=== PATIENT | male | born 1955 | race Caucasian/White ===

== ENCOUNTER 2020-01-19 08:23 | Outpatient (CLI) | payer MEDICARE ==
[2020-01-19] MEDS ORDERED: Magnevist 469MG/ML 20 ML VIAL ONE (10:21)
--- NOTE | 2020-01-19 11:12 | MRI ---
EXAM: MRI of the pelvis/prostate without and with contrast HISTORY: Prostate cancer COMPARISON: CT abdomen/pelvis 10/24/2013 TECHNIQUE: Multiplanar multisequence MR images were obtained of the pelvis without and with IV contra st. Evaluation of this exam was performed with a [employer] workstation. FINDINGS: Central gland: Moderate hypertrophy of the central gland consistent with BPH. Prostate volume is saira mated at 54 mL. A minimal amount of high T1 signal is seen in the right central gland which likely represents blood from recent biopsy. No suspicious low T2 signal lesion is seen. Peripheral zone: No restricted diffusion is seen. No low signal on ADC map. Evaluation of the central most posterior aspect of the peripheral zone is slightly limited secondary to artifact on the diffusion sequence and ADC map. Seminal vesicles: Intact without abnormality Neurovascular bundles: Intact Pelvic lymph nodes: No pelvic adenopathy Other visualized intrapelvic structures: Scattered diverticula in the colon Osseous structures: No marrow signal abnormality IMPRESSION: 1. PI-RADS Category 2-low likelihood that a clinically significant cancer is present. 2. Diverticulosis
== END 2020-01-19 08:24 | disposition home or self-care (01) ==
LOC: TBSIIMAG 08:23
PROVIDERS: ATTEND Urology
DX: R97.20 Elevated prostate specific antigen [PSA] (principal); K57.30 Diverticulosis of large intestine without perforation or abscess without bleeding
CPT/HCPCS: 72197; 82565; A9579

== ENCOUNTER 2020-01-23 06:20 | Outpatient (CLI) | payer MEDICARE ==
[2020-01-23 10:20] LABS: Hemoglobin 16.3 g/dL (14.0-18.0); Mean Corpuscular HGB CONC 33.5 G/DL (32.0-36.0); Mean Corpuscular Hemoglobin 29.9 PG (27.0-33.0); Mean Corpuscular Volume 89.2 fl (80.0-100.0); Mean Platelet Volume 11.2 fl (7.4-10.4); Platelet Count 273 10x3/uL (130-400); RBC Distribution Width 12.6 % (11.5-14.5); Red Blood Cell (RBC) Count 5.45 10x6/uL (4.40-5.80); White Blood Cell (WBC) Count 6.5 10x3/uL (4.5-11.0)
[2020-01-23 10:34] LABS: PTT 28.8 sec (22.0-33.0); Prothrombin Time 10.7 sec (9.5-12.1)
[2020-01-23 10:36] LABS: Anion Gap 17 mmol/L (10-20); BUN (Urea Nitrogen) 14 mg/dL (8.4-25.7); Calc. Creatinine Clearance 0 mL/min (70-130); Calcium 9.4 mg/dL (7.8-10.44); Carbon Dioxide 24 mmol/L (23-31); Chloride 101 mmol/L (98-107); Glucose 83 mg/dL (80-115); Potassium 4.5 mmol/L (3.5-5.1); Sodium 137 mmol/L (136-145)
--- NOTE | 2020-01-23 16:11 | EKG ---
Test Reason : Blood Pressure : / mmHG Vent. Rate : 062 BPM Atrial Rate : 062 BPM P-R Int : 162 ms QRS Dur : 084 ms QT Int : 428 ms P-R-T Axes : 073 080 070 degrees QTc Int : 434 ms Normal sinus rhythm Normal ECG No previous ECGs available Confirmed by DR. Silvestre PANDYA ([id number]) on 01/23/2020 4:11:06 PM Referred By: VERONICA Confirmed By:DR. Silvestre PANDYA
[2020-01-23 17:12] LABS: SARS-CoV-2 MS2 Positive; SARS-CoV-2 N Gene Negative; SARS-CoV-2 S Gene Negative; SARS-CoV-2 by NAA Not Detected (NotDetected); SARS-CoV-2 orf1ab Negative
== END 2020-01-23 06:21 | disposition home or self-care (01) ==
LOC: LABBT 06:20
PROVIDERS: ATTEND Urology
DX: Z01.818 Encounter for other preprocedural examination (principal); Z20.828 Contact with and (suspected) exposure to other viral communicable diseases; N40.0 Benign prostatic hyperplasia without lower urinary tract symptoms
CPT/HCPCS: 80048; 85027; 85610; 85730; 93005; U0003; 87635; 93010

== ENCOUNTER 2020-01-28 07:46 | Observation (INO) | payer MEDICARE ==
[2020-01-28] MEDS ORDERED: PROPOFOL 200 MG/20 ML VIAL ONE (09:04)
[2020-01-28] MEDS ORDERED: Lidocaine 1% PF 5 ML VIAL ONE (09:04)
[2020-01-28] MEDS ORDERED: Sodium Chloride 0.9% 100 ML ONE (09:27)
[2020-01-28] MEDS ORDERED: cefTRIAXone\\ROCEPHIN 2 GM VIAL ONE (09:27)
[2020-01-28] MEDS ORDERED: Fentanyl 100 MCG/2 ML VIAL ONE (10:19)
[2020-01-28] MEDS ORDERED: Phenazopyridine HCl 100 MG TAB ONE ×2 (11:42→20:17)
[2020-01-28] MEDS ORDERED: HYDROcodone/Acetaminophen 5/325 mg Tablet ONE ×2 (13:47→18:45)
[2020-01-28] MEDS ORDERED: Hyoscyamine Sulfate SL 0.125 mg Tablet ONE ×4 (14:44→20:17)
[2020-01-28] MEDS ORDERED: Morphine 2 MG/ML VIAL SLOW IVP PRN (22:41)
[2020-01-28] MEDS ORDERED: Zolpidem Tartrate 5 MG TAB PO PRN (22:41)
[2020-01-28] MEDS ORDERED: Sodium Chloride 0.9% 1,000 ML IV SCH (22:45)
[2020-01-28] MEDS ORDERED: Morphine 4 MG/ML VIAL SLOW IVP PRN (22:48)
[2020-01-28] MEDS ORDERED: HYDROcodone/Acetaminophen 5/325 mg Tablet PO PRN ×2 (22:49)
[2020-01-28] MEDS ORDERED: Acetaminophen 500 MG TAB PO PRN (22:49)
[2020-01-28] MEDS ORDERED: diphenhydrAMINE 50 MG/ML VIAL IVP PRN (22:51)
[2020-01-28] MEDS ORDERED: diphenhydrAMINE 25 MG CAP PO PRN (22:52)
[2020-01-28] MEDS ORDERED: Ondansetron PF 4 MG/2 ML Vial IVP PRN (22:54)
[2020-01-28] MEDS ORDERED: Phenazopyridine HCl 100 MG TAB PO PRN (22:54)
[2020-01-28] MEDS ORDERED: hydrALAZINE 20 MG/ML VIAL SLOW IVP PRN (22:56)
[2020-01-28] MEDS ORDERED: Mag-Al 1200 mg/1200 mg/30 ML UDCUP PO PRN (22:56)
[2020-01-29] MEDS ORDERED: HYDROcodone/Acetaminophen 5/325 mg Tablet ONE (01:55)
[2020-01-29 03:19] VITALS: BMI 29.9
[2020-01-29] MEDS ORDERED: Hyoscyamine Sulfate SL 0.125 mg Tablet SL SCH (06:00)
--- NOTE | 2020-01-29 07:32 | PRG ---
DATE OF SERVICE: 01/29/2020 SUBJECTIVE: The patient without complaints, had a good night restful sleep. OBJECTIVE: VITAL SIGNS: Stable. Urine output, CBI was held this morning at 5:00 a.m., with clear yellow urine. GENERAL: The patient is in no acute distress. HEART: Regular rate. LUNGS: Clear. ABDOMEN: Soft. : Voiding trial initiated. Bladder filled to its capacity, visualized to see good flow. EXTREMITIES: No cyanosis, clubbing, or edema. IMPRESSION AND PLAN: 1. Mr. Santos is a pleasant 65-year-old male with history of elevated PSA, biopsy negative for malignancy. 2. Severe benign prostatic hypertrophy symptoms, unable to tolerate medications due to side effects. 3. Postop day #1, status post UroLift. Surgery was uneventful, hematuria resolved this morning. Will initiate voiding trial. Anticipate patient to be discharged this morning Job ID: [id number] [facility]
--- NOTE | 2020-01-29 07:57 | OP ---
DATE OF PROCEDURE: 01/28/2020 PRIMARY CARE PHYSICIAN: Dr. Jones. PREOPERATIVE DIAGNOSES: A 65-year-old male with: 1. History of benign prostatic hyperplasia. 2. History of elevated PSA, biopsy negative for malignancy. 3. Intolerability to benign prostatic hyperplasia medications with IPSS score of 21. POSTOPERATIVE DIAGNOSES: A 65-year-old male with: 1. History of benign prostatic hyperplasia. 2. History of elevated PSA, biopsy negative for malignancy. 3. Intolerability to benign prostatic hyperplasia medications with IPSS score of 21. PROCEDURES PERFORMED: 1. Cystoscopy. 2. UroLift implantx9(1 pull-through, 1 implant required removal due to proximity to bladder neck) ANESTHESIA: TIVA. COMPLICATIONS: None apparent. DISPOSITION: To recovery room in stable condition. IMPLANTS: Right UroLift implant x9. INDICATIONS FOR PROCEDURE AND HISTORY: Mr. Santos is a pleasant 65-year-old male who was referred to [facility] for elevated PSA, history of epididymo-orchitis in the past. His prostate biopsy is negative for malignancy, volume 60 g. Cystoscopy demonstrated severe bilobar hyperplasia with no obvious median lobe of concern. He presents today for UroLift, which he prefers due to minimally invasive approach. He has been fully informed regarding possible need to escalate to more definitive treatment, such as TURP. Risks and complications of the procedure including, but not limited to, bleeding; pain; infection; urosepsis; injury to adjacent organs, such as neurovascular structures, ureteral orifices; chronic pain, possible incrustation, requiring removal of implants were discussed with him in detail. All questions answered to his satisfaction and he desired to proceed. DESCRIPTION OF PROCEDURE: After an informed consent was signed, the patient was taken to the operating room and placed in a dorsal lithotomy position with the genital area prepped and draped in the usual surgical sterile fashion. A 21- Salvadorean cystoscope was utilized for cystoscopy, which again demonstrated severe bilobar hyperplasia of the prostate. The bladder was entered, demonstrating trabeculation, consistent with chronic outlet obstruction. UOs are about 2 to 3 mm proximal to the bladder neck. At this time, we transitioned to the UroLift device with a visual obturator. We placed a total of 4 implants on the right, a total of 3 on the left, in which in situ he has total of 7 implants. There was one attempt in the left lateral lobe, which resulted in a pull-through. The initial implant that was placed in the left proximal prostatic urethra appeared to be encroaching the bladder neck, therefore I did transition to a DVIU scope and using endoscopic graspers. The urethra tab was removed, and as such, he has a total of 7 implants, and 9 UroLift implants were utilized, resulting in 1 pull-through and 1 removal. At the end of the procedure, we were able to create an anterior channel with resolution of obstructive component. He tolerated the procedure well and transported to the recovery room in stable condition. An 18-Salvadorean 30 mL Solorio catheter was placed. I will monitor him for degree of hematuria and pending reassessment, will be discharged with Solorio versus voiding trial. Postoperative medications sent to the patient's pharmacy. Job ID: [id number] [facility]
[2020-01-29] MEDS ORDERED: Docusate 100 MG CAP PO SCH (09:00)
[2020-01-29] MEDS ORDERED: cefTRIAXone\\ROCEPHIN 1 GM in Sodium Chloride 0.9% 100 ML IVPB SCH (09:00)
[2020-01-29] MEDS ORDERED: Famotidine/PF 20 mg/2ml Vial SLOW IVP SCH (09:00)
[2020-01-29 11:49] VITALS: BP 154/89; TEMP 97.8
--- NOTE | 2020-01-29 12:53 | DIS ---
DATE OF ADMISSION: 01/28/2020 DATE OF DISCHARGE: 01/29/2020 ADMITTING DIAGNOSIS: Benign prostatic hyperplasia. DISPOSITION: To home to self-care. FOLLOWUP: followup appointment on January 29 at 8:00 a.m. for peak-flow PVR. 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 As he has significant BPH symptoms, he desired minimally invasive approach, i.e., UroLift. His prostate volume is enlarged, he has been fully informed regarding possible escalation for more definitive surgery. He underwent UroLift, he was monitored with indwelling Solorio catheter. He had degree of hematuria that required CBI overnight. Although, CBI was a very low rate, as I had concern regarding possible clot retention, I informed him to be prudent to observe him overnight. He had minimal hematuria overnight, CBI at a very low rate. This was held this morning with clear yellow urine. Catheter was removed and he has spontaneously voided multiple times, with urine output clearing. He will follow up with me tomorrow for peak-flow PVR. Job ID: [id number] [facility]
== END 2020-01-29 15:00 | disposition home or self-care (01) ==
LOC: SDC 07:46 → SURG B 16:11
PROVIDERS: ADMIT Urology; ATTEND Urology
PROC: 0T7D8DZ Dilation of Urethra with Intraluminal Device, Via Natural or Artificial Opening Endoscopic (ICD-10-PCS; principal; 2020-01-28)
DX: N40.1 Benign prostatic hyperplasia with lower urinary tract symptoms (principal); R35.0 Frequency of micturition; R35.1 Nocturia; E78.5 Hyperlipidemia, unspecified; K21.9 Gastro-esophageal reflux disease without esophagitis; Z79.899 Other long term (current) drug therapy; Z87.438 Personal history of other diseases of male genital organs; Z88.1 Allergy status to other antibiotic agents; Z88.8 Allergy status to other drugs, medicaments and biological substances
CPT/HCPCS: C1889; C9740; 96374; 96375; G0378; J0696; J2704; J3010; J3490; S0028